=== PATIENT | male | born 1995 | race Two or more races ===

== ENCOUNTER 2022-05-22 20:15 | Emergency (ER) | payer SELFPAY ==
[~2022-05-22] VITALS: Ht 167.6 cm; Wt 81.6 kg
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
[2022-05-22] MEDS ORDERED: IBUPROFEN 600 MG TABLET PO ONE (21:30)
[2022-05-22] MEDS ORDERED: IBUPROFEN 600 MG TABLET ONE (21:31)
[2022-05-22 21:33] VITALS: BP 140/88
== END 2022-05-22 21:33 | disposition home or self-care (01) ==
LOC: ER 20:19
DX: S90.31XA Contusion of right foot, initial encounter (principal); S40.212A Abrasion of left shoulder, initial encounter; S80.212A Abrasion, left knee, initial encounter; S80.211A Abrasion, right knee, initial encounter; Z60.2 Problems related to living alone; X58.XXXA Exposure to other specified factors, initial encounter; Y93.89 Activity, other specified; Y92.89 Other specified places as the place of occurrence of the external cause; Y99.8 Other external cause status
CPT/HCPCS: 73030-TC; 73610-TC; 73630-TC